=== PATIENT | female | born 1990 | race Caucasian/White ===

== ENCOUNTER 2018-04-02 14:51 | Emergency (ER) | payer OTHER ==
[~2018-04-02] VITALS: Ht 157.5 cm; Wt 74.8 kg
== END 2018-04-02 19:28 | disposition home or self-care (01) ==
LOC: ER 14:51
DX: N92.0 Excessive and frequent menstruation with regular cycle (principal)

== ENCOUNTER 2018-07-29 05:50 | Day surgery (SDC) | payer OTHER | END 2018-07-29 10:40 | disposition home or self-care (01) | LOC: CIR.AMB 05:50 | DX: N93.8 Other specified abnormal uterine and vaginal bleeding (principal) ==

== ENCOUNTER 2018-10-14 13:50 | Emergency (ER) | payer OTHER ==
[~2018-10-14] VITALS: Ht 157.5 cm; Wt 90.7 kg
== END 2018-10-14 22:12 | disposition home or self-care (01) ==
LOC: ER 13:50
DX: N93.8 Other specified abnormal uterine and vaginal bleeding (principal)

== ENCOUNTER → 2023-05-10 | Outpatient (CLI) | payer OTHER | END | disposition home or self-care (01) | LOC: RX STUDY 09:04 | DX: N87.1 Moderate cervical dysplasia (principal) ==

== ENCOUNTER 2023-08-10 09:07 | Outpatient (CLI) | payer OTHER | END 2023-08-10 09:14 | disposition home or self-care (01) | LOC: RX STUDY 09:07 → SONOGRAMA 09:07 → RX STUDY 09:14 → SONOGRAMA 09:14 | PROVIDERS: ATTEND Obstetrics & Gynecology | DX: N93.8 Other specified abnormal uterine and vaginal bleeding (principal); N97.0 Female infertility associated with anovulation ==